=== PATIENT | male | born 1990 | race Caucasian/White ===

== ENCOUNTER 2020-12-05 16:23 | Emergency (ER) | payer OTHER, BC ==
[2020-12-05] MEDS ORDERED: Ibuprofen 800 MG TAB ONE (17:27)
[2020-12-05] MEDS ORDERED: Acetaminophen 500 MG TAB ONE (17:27)
[2020-12-05] MEDS ORDERED: Ondansetron ODT 4 MG TAB ONE (17:27)
[2020-12-06 08:51] LABS: SARS-CoV-2 PCR by NAA DETECTED (NotDetected)
== END 2020-12-05 19:16 | disposition home or self-care (01) ==
LOC: ERS 16:23
DX: R11.2 Nausea with vomiting, unspecified (principal); E86.0 Dehydration; I10 Essential (primary) hypertension
CPT/HCPCS: 99284; Q0162; U0003; U0005